=== PATIENT | male | born 1940 | race Caucasian/White ===

== ENCOUNTER 2021-04-11 19:51 | Emergency (ER) | payer OTHER ==
[~2021-04-11] VITALS: Ht 167.6 cm; Wt 68.9 kg
[2021-04-11 20:06] VITALS: BP_SYST 147
[2021-04-11 20:56] LABS: BASOPHILS % (AUTO) 0.2 % (0.0-2.0); HEMATOCRIT 34.8 % (36-54); HEMOGLOBIN 11.6 g/dL (14.0-18.0); LYMPHOCYTES # (AUTO) 0.8 K/uL (1.0-5.5); LYMPHOCYTES % (AUTO) 7.7 % (20.5-51.5); MEAN CORPUSCULAR HEMOGLOBIN 30 pg (27-31); MEAN CORPUSCULAR HGB CONC 34 % (32-36); MEAN CORPUSCULAR VOLUME 90 fL (79.0-98.0); MONOCYTES # (AUTO) 1.2 K/uL (0.0-1.0); MONOCYTES % (AUTO) 12.2 % (1.7-9.3); NEUTROPHILS # (AUTO) 7.8 K/uL (1.8-7.7); NEUTROPHILS % (AUTO) 79.9 % (40.0-70.0); PLATELET COUNT (AUTO) 199 K/uL (130-430); RED BLOOD CELL COUNT(AUTO) 3.87 MIL/uL (4.2-6.2); RED CELL DISTRIBUTION WIDTH 14.6 % (9.0-15.0); WHITE BLOOD COUNT (AUTO) 9.8 K/uL (4.8-10.8)
[2021-04-11 21:06] LABS: ANION GAP 6 (5-15); CALCIUM 10.2 mg/dL (8.4-11.0); CHLORIDE 102 mmol/L (98-107); CREATININE 1.34 mg/dL (0.55-1.30); GLUCOSE 268 mg/dL (70-99); POTASSIUM 4.4 mmol/L (3.5-5.1); SODIUM SERUM 141 mmol/L (136-145); UREA NITROGEN, BLOOD 26 mg/dL (8-21)
[2021-04-11 21:12] LABS: ALANINE AMINOTRANSFERASE 36 U/L (12-78); ALBUMIN 3.4 g/dL (3.4-4.8); ASPARTATE AMINOTRANSFERASE 22 U/L (10-37); TOTAL BILIRUBIN 1.1 mg/dL (0.0-1.0)
[2021-04-11 22:13] LABS: BILIRUBIN,URINE NEGATIVE (NEGATIVE); BLOOD, URINE 1+ (NEGATIVE); CLARITY/URINE CLEAR (CLEAR); COLOR,URINE YELLOW (YELLOW); GLUCOSE,URINE 2+ (NEGATIVE); KETONES,URINE NEGATIVE (NEGATIVE); LEUKOCYTE ESTERASE ,URINE NEGATIVE (NEGATIVE); NITRITE, URINE NEGATIVE (NEGATIVE); PROTEIN URINE NEGATIVE (NEGATIVE); UROBILINOGEN,URINE 0.2 (0.2-1.0)
[2021-04-11 22:23] LABS: BACTERIA,URINE FEW /HPF (None Seen); MUCUS,URINE None Seen /LPF (None Seen); WBC,URINE 0-3 /HPF (0-3)
[2021-04-11 22:45] VITALS: BP_SYST 146
== END 2021-04-11 22:45 | disposition home or self-care (01) ==
LOC: SED 19:51
DX: R53.1 Weakness (principal); E11.9 Type 2 diabetes mellitus without complications; M25.532 Pain in left wrist
CPT/HCPCS: 36415; 71045; 72170-TC; 80053; 81000; 84484; 85025; 87040-TC; 87086; 93005; 99285